=== PATIENT | female | born 2000 | race Caucasian/White ===

== ENCOUNTER 2018-08-30 23:32 | Emergency (ER) | payer OTHER ==
[~2018-08-30] VITALS: Ht 160 cm; Wt 51.3 kg
[~2018-08-30 23:32] MED LIST: AMOCLA500 PO; CEPH250A PO; CEPH500 PO; TRIA80TC TOP
[2018-08-31] MEDS ORDERED: Verotin-Gr Cap1 EACH PO (01:03)
[2018-08-31 01:33] LABS: Influenza A Negative (NEGATIVE); Influenza B Negative (NEGATIVE)
[2018-08-31] MEDS ORDERED: Zofran4 MG PO (01:51)
== END 2018-08-31 01:55 | disposition home or self-care (01) ==
LOC: ER 23:32
PROVIDERS: Emergency Medicine
DX: O99.511 Diseases of the respiratory system complicating pregnancy, first trimester (principal); J02.9 Acute pharyngitis, unspecified; Z87.891 Personal history of nicotine dependence; Z88.6 Allergy status to analgesic agent; Z79.899 Other long term (current) drug therapy; Z3A.12 12 weeks gestation of pregnancy
CPT/HCPCS: 87081; 87430; 87804; 99283

== ENCOUNTER → 2018-10-17 | Outpatient (CLI) | payer OTHER ==
[~2018-10-17] MED LIST changes: +Verotin-Gr Cap1 EACH PO; +Zofran4 MG PO
[2018-10-17 11:12] LABS: Source, Urine Clean Catch
[2018-10-17 12:46] LABS: Bilirubin, Urine Neg (Neg); Blood, Urine Neg (Neg); Glucose Qualitative, Urine Neg (Neg); Ketones, Urine Neg (Neg); Leukocyte Esterase, Urine Neg (Neg); Nitrite, Urine Neg (Neg); Protein, Urine Neg (Neg); Urobilinogen, Urine NORM (Normal)
[2018-10-17 13:04] LABS: U Amphetamine Screen Not Detected; U Barbituate Screen Not Detected; U Benzodiazapine Screen Not Detected; U Buprenorphine Screen Not Detected; U Cannabinoids Screen Not Detected; U Cocaine Screen Not Detected; U Methadone Screen Not Detected; U Methamphetamine Screen Not Detected; U Opiates Screen Not Detected; U Oxycodone Screen Not Detected; U Phencyclidine Screen Not Detected; U Propoxyphene Screen Not Detected
[2018-10-17 13:54] LABS: Appearance, Urine Clear (Clear); Color, Urine Yellow (P-Yellow)
== END | disposition home or self-care (01) ==
LOC: LAB 11:09 → LAB SHORT 11:09
PROVIDERS: Advanced Practice Midwife
DX: O23.40 Unspecified infection of urinary tract in pregnancy, unspecified trimester (principal)
CPT/HCPCS: 81003

== ENCOUNTER → 2019-02-28 | Outpatient (CLI) | payer OTHER ==
[~2019-02-28] MED LIST changes: +Zithromax250 MG PO
== END | disposition home or self-care (01) ==
LOC: LAB SHORT 16:13 → LAB 16:13
DX: Z34.00 Encounter for supervision of normal first pregnancy, unspecified trimester (principal)
CPT/HCPCS: 87081; 87653

== ENCOUNTER 2019-03-18 15:50 | Inpatient (IN) | payer OTHER ==
[~2019-03-18] VITALS: Ht 160 cm; Wt 61.0 kg
[2019-03-18 17:32] LABS: BASOPHILS ABSOLUTE AUTO 0.07 K/mm3 (0.00-0.23); BASOPHILS PERCENT AUTO 0 % (0-2); EOSINOPHILS ABSOLUTE AUTO 0.09 K/mm3 (0.00-0.68); EOSINOPHILS PERCENT AUTO 1 % (0-6); Hematocrit 37.7 % (33.0-51.0); Hemoglobin 12.4 g/dL (11.5-16.0); IMMATURE GRAN PERCENT AUTO 1 % (0-1); LYMPHOCYTES ABSOLUTE AUTO 2.59 K/mm3 (0.84-5.20); LYMPHOCYTES PERCENT AUTO 13 % (21-46); MONOCYTES ABSOLUTE AUTO 1.37 K/mm3 (0.16-1.47); MONOCYTES PERCENT AUTO 7 % (4-13); Mean Corpuscular HGB 29.7 pg (26.0-34.0); Mean Corpuscular HGB Conc 32.9 g/dL (31.5-36.5); Mean Corpuscular Volume 90 fL (80-100); NEUTROPHILS PERCENT AUTO 78 % (41-73); Platelet Count 293 K/mm3 (150-400); RDW Coefficient Variation 13.5 % (11.7-14.2); RDW Standard Deviation 44.5 fL (35.1-46.3); Red Blood Cell Count 4.17 M/mm3 (3.80-5.20); White Blood Cell Count 19.32 K/mm3 (4.00-11.30)
--- NOTE | 2019-03-19 12:35 | NUR ---
AMBULATED OUTSIDE W/S.O. AND FAMILY. BABY REMAINS IN ROOM W/GRANDMA
--- NOTE | 2019-03-19 12:50 | NUR ---
BACK IN ROOM; PER PT READY FOR ANOTHER TYLENOL
--- NOTE | 2019-03-19 16:27 | NUR ---
PT AMBULATING IN [place] WITH BABY IN C[place]B
--- NOTE | 2019-03-19 17:40 | NUR ---
BABY OUT W/[employer]OTIVE [employer]ES REPRESENTATIVE SO PARENTS CAN SLEEP; JUST BREASTFEED
--- NOTE | 2019-03-19 17:58 | NUR ---
PT BACK IN ROOM
--- NOTE | 2019-03-19 18:47 | NUR ---
PT SLEEPING UNDISTURBED, DINNER TRAY STILL IN ROOM
--- NOTE | 2019-03-19 19:01 | NUR ---
REPORT TO ANSELMO FERNÁNDEZ RN
[2019-03-20 07:19] LABS: Hematocrit 35.4 % (33.0-51.0); Hemoglobin 11.5 g/dL (11.5-16.0); Mean Corpuscular HGB 29.7 pg (26.0-34.0); Mean Corpuscular HGB Conc 32.5 g/dL (31.5-36.5); Mean Corpuscular Volume 92 fL (80-100); Mean Platelet Volume 10.9 fL (9.1-12.4); Platelet Count 291 K/mm3 (150-400); RDW Coefficient Variation 13.9 % (11.7-14.2); Red Blood Cell Count 3.87 M/mm3 (3.80-5.20); White Blood Cell Count 19.53 K/mm3 (4.00-11.30)
--- NOTE | 2019-03-20 08:00 | NUR ---
MOM DOING WELL. PLANNING TO DC HOME TODAY. HANDLING NB WELL, ASKING CALVIN QUESTIONS.
--- NOTE | 2019-03-20 10:45 | NUR ---
BANDS MATCHED, DC HOME.
== END 2019-03-20 10:50 | disposition home or self-care (01) | DRG 807 ==
LOC: OBS 15:50 → BC 15:50 → OBS 16:14 → BC 16:15
PROVIDERS: ADMIT Family Medicine
PROC: 10E0XZZ Delivery of Products of Conception, External Approach (ICD-10-PCS; principal; 2019-03-19)
PROC: 0UQMXZZ Repair Vulva, External Approach (ICD-10-PCS; 2019-03-19)
DX: O71.4 Obstetric high vaginal laceration alone (principal); Z37.0 Single live birth; Z3A.39 39 weeks gestation of pregnancy
CPT/HCPCS: 36415; 85025; 85027; A9270; J2590; J3010; J7120